=== PATIENT | male | born 1950 | race Caucasian/White ===

== ENCOUNTER 2018-08-16 11:43 | Emergency (ER) | payer BC, OTHER ==
--- NOTE | 2018-08-16 13:35 | EDPHY ---
H & P Time Seen by Provider: 08/16/18 13:04 HPI/ROS: HPI Sebaceous cyst, abscess on back of neck. 67-year-old male by private vehicle. This patient reports he has a history of a sebaceous cyst which has also developed an abscess in the past. He reports that he developed sepsis from this in 2012. He reports that he was at the gym this morning. He reports after his workout he felt the back of his neck and had a tender swelling back there, similar to the swelling he had back in 2013. He has not had a fever. There is no history of trauma. He he denies any loss of sensation or weakness in his extremities. ROS: Constitutional: No fever, no chills. No weakness. ENT: No sore throat. No nasal congestion or rhinorrhea. Musculoskeletal: No back pain. As above. No myalgias or arthralgias. Skin: No rashes. As above. Neurological: No headache. No focal weakness or altered sensation. Past medical history: Endocarditis, acoustic neuroma, thyroid cancer. He currently does not have a primary care physician. He reports that he recently moved to this area. Social history: As above. Nonsmoker. No alcohol. Here by himself. 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 Physical Exam: General Appearance: Alert, no distress. This patient is responding to questions appropriately and in full sentences. This patient appears well- hydrated and well-nourished. Eyes: Pupils equal and round no pallor or injection. No lid edema, erythema or injection. Neck exam: Significant for a tender fluctuant swelling about the size of a quarter in diameter mid posterior neck below the hairline. There is an erythematous border but no erythema or edema beyond this. He does not have significant pain on flexion of the neck. Neurological: Motor sensory function is grossly intact. Cranial nerves are normal. Gait is normal. Skin: Warm and dry, no rashes. Musculoskeletal: Neck is supple and nontender except noted above. Extremities are symmetrical. All joints range without pain or impingement. Psychiatric: No agitation. No depression. Database: EKG: Imaging: Procedures: Procedure: Abscess drainage. The patient's abscess/sebaceous cyst was located on the mid posterior neck. I obtained verbal consent from the patient to drain the abscess who was informed about the possibility of bleeding and pain. The abscess was incised with 11. Blade and a copious amount of cottage cheese like and purulent purulent drainage was expressed. I irrigated the wound and placed some packing. The patient tolerated the procedure well. The procedure was performed by myself. Emergency department course: Triage vital signs reviewed. He is mildly hypertensive. Vital signs are normal. Incision and drainage of sebaceous cyst with abscess as above. Sterile gauze dressing placed by myself. No complications. Given the patient' s history I will start him on a combination of Bactrim and Keflex. G stain and culture of abscess aspirate sent to the lab. I will provide him with a referral for follow-up with a primary care physician. He feels comfortable going home at this time. Return to emergency department precautions reviewed with him. All of his questions were answered. He was discharged from the emergency department in good condition. Differential Diagnosis: The differential diagnosis on this patient includes but is not limited to infected sebaceous cyst with abscess. Significant cellulitis, sepsis, meningitis, epidural abscess unlikely. This represents a partial list of diagnoses considered. These considerations are based on history, physical exam , past history, reassessment and diagnostic testing. Smoking Status: Never smoked Constitutional: Initial Vital Signs Temperature (C) 36.5 C 08/16/18 11:49 Heart Rate 75 08/16/18 11:49 Respiratory Rate 16 08/16/18 11:49 Blood Pressure 142/69 H 08/16/18 11:49 O2 Sat (%) 97 08/16/18 11:49 O2 Delivery Mode Room Air Allergies/Adverse Reactions: No Known Allergies Allergy (Unverified 08/16/18 11:54) Home Medications: Medication Instructions Recorded Amlodipine Besylate 08/16/18 Cephalexin [Keflex (*)] 500 mg PO Q6 7 Days cap 08/16/18 Lisinopril 08/16/18 Sulfamethox/Tmp 800/160 mg 1 tab PO BID@1000,2200 #14 tab 08/16/18 [Bactrim Ds] Synthroid 08/16/18 Departure - Departure Disposition: Home, Routine, Self-Care Clinical Impression: Infected sebaceous cyst Condition: Good Instructions: Cyst (ED), Abscess Follow-up (ED), Abscess (ED) Referrals: NONE *PRIMARY CARE P,. [Primary Care Provider] - As per Instructions Pat Troy MD [Medical Doctor] - As per Instructions Lonnie Sinclair MD [[facility] [place] Primary Care Provider] - As per Instructions [facility],. [Clinic] - As per Instructions Prescriptions: Cephalexin [Keflex (*)] 500 mg PO Q6 7 Days cap Sulfamethox/Tmp 800/160 mg [Bactrim Ds] 1 tab PO BID@1000,2200 #14 tab
[2018-08-16 13:38] VITALS: BP 145/73
== END 2018-08-16 13:50 | disposition home or self-care (01) ==
PROC: 0H94XZZ Drainage of Neck Skin, External Approach (ICD-10-PCS; principal; 2018-08-16)
DX: L72.3 Sebaceous cyst (principal)